=== PATIENT | female | born 1955 | race Caucasian/White ===

== ENCOUNTER 2017-10-13 08:18 | Inpatient (IN) | payer OTHER ==
[2017-10-13] VITALS (8 sets, daily range): BP systolic 164–219; BP diastolic 80–91; PULSE 73–102; RESP 14–21; TEMP 97.9–98.2; O2SAT 96–100
[~2017-10-13] VITALS: Ht 167.6 cm; Wt 118.9 kg
[~2017-10-13 08:18] MED LIST: CALC600T34 PO; COQ10 PO; ENAL5TAB98 PO; GLYB1TAB50 PO; PIOG15 PO; TAB-TAB PO
[2017-10-13] MEDS ORDERED: SODIUM CHLORIDE 0.9% FLUSH 10 ML FLUSH IVF PRN (09:15)
--- NOTE | 2017-10-13 09:16 | PD ---
HPI Chief Complaint: Neuro Symptoms/ Deficits Time Seen by Provider: 09:00 Travel History International Travel<30 days: No Contact w/Intl Traveler<30days: No Traveled to known affect area: No History of Present Illness HPI The patient is a 62-year-old female who presents to the emergency department for neuro symptoms. The patient states she has had some intermittent dizziness and headache since August. The patient states she went to bed last night feeling well, when she awakened this morning she was unable to speak and had weakness and numbness of the right side of the body. The patient states she had expressive aphasia for approximately 10 minutes. She also noted that she cannot move the right side of her body and had numbness/tingling of the right side of the body. Her symptoms resolved after 10 minutes. She currently denies any symptoms except for mild dizziness which she states has been intermittent since August. The patient's primary physician is Dr. Bravo. The patient denies any previous history of CVA or TIA. The patient does have a history of hypertension, hyperlipidemia, and diabetes. Symptoms were moderate, resolved after 10 minutes. PFSH Past Medical History Cancer: No Diabetes: Yes Glaucoma: No Hepatitis: No Hiatal Hernia: No Hypertension: Yes Thyroid Disease: No Past Surgical History Gynecologic Surgery: Yes (HYSTERECTOMY, D&C X 2) Oral Surgery: Yes (TONSILLECTOMY) Pacemaker: No Social History Alcohol Use: Yes (SOCIAL) Tobacco Use: No Allergies-Medications (Allergen,Severity, Reaction): Coded Allergies: Sulfa (Sulfonamide Antibiotics) (Unverified Allergy, Severe, mouth peels, 10/13/17) Uncoded Allergies: PINE TREES (Allergy, Severe, STOPS BREATHING, 04/18/09) ARTIFICIAL SWEETNERS (Adverse Reaction, Severe, CAUSE NAUSEA, EXCEPT FOR SACATRIN, 04/18/09) Reported Meds & Prescriptions Reported Meds & Active Scripts Active Reported Aspirin 81 Mg Chew 81 Mg CHEW DAILY Tanzeum 4-Pack Inj (Albiglutide) 50 Mg Pfpen 50 Mg SQ Q7D Amaryl (Glimepiride) 2 Mg Tab 2 Mg PO BIDAC [Coq10] 400 Mg PO DAILY Calcium 600 Mg Tab 600 Mg PO BID Multivitamin (Multivitamins) 1 Tab Tab 1 Tab PO DAILY Vasotec (Enalapril Maleate) 5 Mg Tab 5 Mg PO BID Diabeta (Glyburide) 2.5 Mg Tab 0.5 Tab PO BID Actos 15 mg (Pioglitazone HCl) 15 Mg Tab 20 Mg PO DAILY Review of Systems Except as stated in HPI: all other systems reviewed are Neg Eyes: No: Visual changes HENT: Positive: Headaches, No: Lightheadedness Cardiovascular: No: Chest Pain or Discomfort Respiratory: No: Shortness of Breath Gastrointestinal: No: Nausea, Vomiting, Abdominal Pain Musculoskeletal: Positive: Weakness Neurologic: Positive: Slurred Speech (expressive aphasia per patient), Paresthesia, Sensory Disturbance Physical Exam Narrative GENERAL: Awake, alert, pleasant 62-year-old female who appears her stated age and is in no acute respiratory distress. SKIN: Focused skin assessment warm/dry. HEAD: Atraumatic. Normocephalic. EYES: Pupils equal and round. 4 mm bilateral and reactive. EOMs are intact. Visual mcnair appear symmetric. ENT: No nasal bleeding or discharge. Mucous membranes pink and moist. NECK: Trachea midline. No JVD. CARDIOVASCULAR: Regular rate and rhythm. No murmur appreciated. RESPIRATORY: No accessory muscle use. Clear to auscultation. Breath sounds equal bilaterally. GASTROINTESTINAL: Abdomen soft, non-tender, nondistended. MUSCULOSKELETAL: No obvious deformities. No clubbing. No cyanosis. No edema. NEUROLOGICAL: Awake and alert. No obvious cranial nerve deficits. Motor grossly within normal limits. Normal speech. Nonfocal. Oriented 4. Follows commands without difficulty. No drift of the upper or lower extremities. Finger to nose is normal. Kyja-sd-dluh is normal. Sensation was symmetric on the face, arms, and legs bilaterally. Smile is symmetric. NIHSS 0. PSYCHIATRIC: Appropriate mood and affect; insight and judgment normal. Data Data Last Documented VS Vital Signs Date Time Temp Pulse Resp B/P (MAP) Pulse Ox O2 Delivery O2 Flow Rate FiO2 10/13/17 09:28 (129) Room Air 10/13/17 09:06 81 18 97 10/13/17 08:31 97.9 Orders Orders Complete Blood Count With Diff (10/13/17 08:46) Basic Metabolic Panel (Bmp) (10/13/17 08:46) Prothrombin Time / Inr (Pt) (10/13/17 08:46) Electrocardiogram (10/13/17 09:11) Creatine Kinase (Cpk) (10/13/17 09:11) Troponin I (10/13/17 09:11) Ct Brain W/O Iv Contrast(Rout) (10/13/17 09:11) Chest, Single Ap (10/13/17 09:11) Ecg Monitoring (10/13/17 09:11) Iv Access Insert/Monitor (10/13/17 09:11) Oximetry (10/13/17 09:11) Sodium Chloride 0.9% Flush (Ns Flush) (10/13/17 09:15) Admit Order (Ed Use Only) (10/13/17 10:08) Labs Laboratory Tests Test 10/13/17 08:50 White Blood Count 7.8 TH/MM3 Red Blood Count 5.19 MIL/MM3 Hemoglobin 14.0 GM/DL Hematocrit 42.0 % Mean Corpuscular Volume 80.9 FL Mean Corpuscular Hemoglobin 27.0 PG Mean Corpuscular Hemoglobin Concent 33.3 % Red Cell Distribution Width 14.6 % Platelet Count 236 TH/MM3 Mean Platelet Volume 9.1 FL Neutrophils (%) (Auto) 70.1 % Lymphocytes (%) (Auto) 23.4 % Monocytes (%) (Auto) 4.9 % Eosinophils (%) (Auto) 1.1 % Basophils (%) (Auto) 0.5 % Neutrophils # (Auto) 5.5 TH/MM3 Lymphocytes # (Auto) 1.8 TH/MM3 Monocytes # (Auto) 0.4 TH/MM3 Eosinophils # (Auto) 0.1 TH/MM3 Basophils # (Auto) 0.0 TH/MM3 CBC Comment DIFF FINAL Differential Comment Prothrombin Time 10.0 SEC Prothromb Time International Ratio 1.0 RATIO Blood Urea Nitrogen 8 MG/DL Creatinine 0.72 MG/DL Random Glucose 184 MG/DL Calcium Level 8.6 MG/DL Sodium Level 138 MEQ/L Potassium Level 3.8 MEQ/L Chloride Level 104 MEQ/L Carbon Dioxide Level 27.0 MEQ/L Anion Gap 7 MEQ/L Estimat Glomerular Filtration Rate 82 ML/MIN Total Creatine Kinase 43 U/L Troponin I LESS THAN 0.02 NG/ML MDM Medical Decision Making Medical Screen Exam Complete: Yes Emergency Medical Condition: Yes Medical Record Reviewed: Yes Interpretation(s) EKG reveals normal sinus rhythm with a rate of 73. No ischemic changes or ectopy noted. Last Impressions Head CT 10/13/17 09 Signed Impressions: Service Date/Time: Friday, October 13, 2017 09:41 - CONCLUSION: 1. Old area of cortical infarct measuring approximately 1 cm involving the right cerebellar hemisphere. 2. No acute intracranial abnormality identified. Jose Hancock MD Chest X-Ray 10/13/17 0911 Signed Impressions: Service Date/Time: Friday, October 13, 2017 09:28 - CONCLUSION: 1. No acute cardiopulmonary findings. Jose Hancock MD Laboratory Tests Test 10/13/17 08:50 White Blood Count 7.8 TH/MM3 Red Blood Count 5.19 MIL/MM3 Hemoglobin 14.0 GM/DL Hematocrit 42.0 % Mean Corpuscular Volume 80.9 FL Mean Corpuscular Hemoglobin 27.0 PG Mean Corpuscular Hemoglobin Concent 33.3 % Red Cell Distribution Width 14.6 % Platelet Count 236 TH/MM3 Mean Platelet Volume 9.1 FL Neutrophils (%) (Auto) 70.1 % Lymphocytes (%) (Auto) 23.4 % Monocytes (%) (Auto) 4.9 % Eosinophils (%) (Auto) 1.1 % Basophils (%) (Auto) 0.5 % Neutrophils # (Auto) 5.5 TH/MM3 Lymphocytes # (Auto) 1.8 TH/MM3 Monocytes # (Auto) 0.4 TH/MM3 Eosinophils # (Auto) 0.1 TH/MM3 Basophils # (Auto) 0.0 TH/MM3 CBC Comment DIFF FINAL Differential Comment Prothrombin Time 10.0 SEC Prothromb Time International Ratio 1.0 RATIO Blood Urea Nitrogen 8 MG/DL Creatinine 0.72 MG/DL Random Glucose 184 MG/DL Calcium Level 8.6 MG/DL Sodium Level 138 MEQ/L Potassium Level 3.8 MEQ/L Chloride Level 104 MEQ/L Carbon Dioxide Level 27.0 MEQ/L Anion Gap 7 MEQ/L Estimat Glomerular Filtration Rate 82 ML/MIN Differential Diagnosis Differential Tran diagnosis includes TIA, CVA, transient neurologic deficit, hemiplegic migraine, night paralysis, intracranial hemorrhage. Narrative Course IV was established, labs are drawn and sent, and the patient was placed on cardiac telemetry monitoring and continuous pulse oximetry monitoring. EKG was ordered and interpreted. Stat CT of the brain was obtained. Upon arrival the patient's stroke scale was 0, however, it appears the patient had a TIA affect and possibly the left MCA with her aphasia and right sided weakness and numbness. Patient does have multiple risk factors including diabetes, hypertension, and hyperlipidemia. 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 I discussed the patient Dr. Suarez who agrees with admission. The patient received aspirin in the emergency department. Physician Communication Physician Communication I discussed the patient with Dr. Suarez who agrees with admission. Diagnosis Primary Impression: TIA (transient ischemic attack) Qualified Codes: G45.9 - Transient cerebral ischemic attack, unspecified Additional Impression: Cerebellar infarct Admitting Information Admitting Physician Requests: Admit Condition: Stable Tristan Copeland MD Oct 13, 2017 09:16
[2017-10-13 09:20] LABS: AUTOMATED NEUTROPHIL # 5.5 TH/MM3 (1.8-7.7); BASOPHIL % 0.5 % (0.0-2.0); EOSINOPHIL # 0.1 TH/MM3 (0-0.4); EOSINOPHIL % 1.1 % (0.0-4.0); LYMPH % 23.4 % (9.0-44.0); LYMPHOCYTE # 1.8 TH/MM3 (1.0-4.8); MEAN CELL VOLUME 80.9 FL (80.0-100.0); MEAN CORPUSCULAR HGB CONC 33.3 % (32.0-36.0); MEAN PLATELET VOLUME 9.1 FL (7.0-11.0); MONO % 4.9 % (0.0-8.0); MONOCYTE # 0.4 TH/MM3 (0-0.9); NEUT % 70.1 % (16.0-70.0); PLATELET COUNT 236 TH/MM3 (150-450); RED BLOOD COUNT 5.19 MIL/MM3 (4.00-5.30); RED CELL DISTRIBUTION WIDTH 14.6 % (11.6-17.2); WHITE BLOOD COUNT 7.8 TH/MM3 (4.0-11.0)
[2017-10-13 09:34] LABS: CALCIUM 8.6 MG/DL (8.5-10.1); CREATININE 0.72 MG/DL (0.50-1.00)
--- NOTE | 2017-10-13 09:38 | RADRPT ---
EXAM DATE/TIME: 10/13/2017 09:28 [facility] COMPARISON: No previous studies available for comparison. INDICATIONS : Patient had right sided weakness with inability to speak this morning. MEDICAL HISTORY : None. SURGICAL HISTORY : None. ENCOUNTER: Initial ACUITY: 1 day PAIN SCORE: 0/10 LOCATION: upper chest FINDINGS: A single view of the chest demonstrates the lungs to be symmetrically aerated without evidence of mas s, infiltrate or effusion. The cardiomediastinal contours are unremarkable. Osseous structures are intact. CONCLUSION: 1. No acute cardiopulmonary findings. Jose Hancock MD on October 13, 2017 at 9:34 Board Certified Radiologist. This report was verified electronically.
--- NOTE | 2017-10-13 09:53 | RADRPT ---
EXAM DATE/TIME: 10/13/2017 09:41 [facility] COMPARISON: No previous studies available for comparison. INDICATIONS : Right sided weakness, dizziness. RADIATION DOSE: 36.72 CTDIvol (mGy) MEDICAL HISTORY : Hypertension. Cerebrovascular disease. diabetes SURGICAL HISTORY : Tonsillectomy. ENCOUNTER: Initial ACUITY: 1 day PAIN SCALE: 5/10 LOCATION: cranial TECHNIQUE: Multiple contiguous axial images were obtained of the head. Using automated exposure control and adj ustment of the mA and/or kV according to patient size, radiation dose was kept as low as reasonably a chievable to obtain optimal diagnostic quality images. DICOM format image data is available electro nically for review and comparison. FINDINGS: The ventricular system is normal in size and configuration. There is no acute intracranial hemorrhage . No abnormal intra-or extra-axial fluid collections are identified. Examination of the posterior fossa demonstrates a 1.1 x 1.0 cm area of encephalomalacia in the right cerebellar hemisphere. The posterior fossa is otherwise unremarkable in appearance. The osseous structures of skull are intact. The visualized portion of the orbit are intact. The sinus es are clear. CONCLUSION: 1. Old area of cortical infarct measuring approximately 1 cm involving the right cerebellar hemispher e. 2. No acute intracranial abnormality identified. Jose Hancock MD on October 13, 2017 at 9:47 Board Certified Radiologist. This report was verified electronically.
[2017-10-13] MEDS ORDERED: SODIUM CHLORIDE 0.9% FLUSH 10 ML FLUSH IV FLUSH PRN ×2 (10:15→21:15)
[2017-10-13] MEDS ORDERED: ACETAMINOPHEN 325 MG TAB PO PRN (10:15)
[2017-10-13] MEDS ORDERED: NALOXONE HCL 0.4 MG/ML AMP IV PUSH PRN (10:15)
[2017-10-13] MEDS ORDERED: MAGNESIUM HYDROXIDE SUSP 30 ML CUP PO PRN (10:15)
[2017-10-13] MEDS ORDERED: ONDANSETRON HCL 4 MG/2 ML VIAL IVP PRN (10:15)
[2017-10-13] MEDS ORDERED: AMAR2TAB PO (10:19)
[2017-10-13] MEDS ORDERED: ASPI-516 CHEW (10:19)
[2017-10-13] MEDS ORDERED: ALBI1INJ2 SQ (10:19)
[2017-10-13 10:24] LABS: TROPONIN I LESS THAN 0.02 NG/ML (0.02-0.05)
[2017-10-13] MEDS ORDERED: GLUCAGON 1 MG/ML VIAL OTHER PRN ×2 (10:45→21:15)
[2017-10-13] MEDS ORDERED: DEXTROSE 50% IN WATER 50 ML VIAL(D50) IV PUSH PRN ×2 (10:45→21:15)
[2017-10-13] MEDS: ENALAPRIL MALEATE 10 MG TAB PO SCH ×2 (11:00→21:46)
[2017-10-13] MEDS ORDERED: ASPIRIN 325 MG TAB PO SCH (11:00)
--- NOTE | 2017-10-13 11:11 | HHI.HP ---
HPI Service [facility] Hospitalists Primary Care Physician Agus Bravo MD Admission Diagnosis TIA, cerebellar infarct Chief Complaint: Dizziness, transient neurological deficits Travel History International Travel<30 Days: No Contact w/Intl Traveler <30 Da: No Traveled to Known Affected Are: No History of Present Illness Mrs. Porter is a 62 y/o female with diabetes mellitus, type 2, HTN, and hyperlipidemia who presented to the ED at [facility] on 10/13/17 with reported intermittent dizziness and headache since August 2017. The patient states she went to bed last night feeling well but when she awakened this morning she was unable to speak and had weakness and numbness of the right side of the body. The patient reports that she had expressive aphasia and the right sided weakness and paresthesia for approximately 10 minutes then her symptoms resolved. She denies any previous known hx of CVA or TIA. She denies any previous similar symptoms. She had a Head CT in the ED which noted an old area of cortical infarct measuring approximately 1 cm involving the right cerebellar hemisphere but no acute intracranial abnormality identified. Pts BP was significantly elevated in the ED at 205/91 and has remained elevated. Pt has been able to ambulate in the ED. She still feels slightly dizzy. Review of Systems Constitutional: COMPLAINS OF: Diaphoretic episodes, Dizziness, DENIES: Fever, Chills Eyes: DENIES: Vision loss Ears, nose, mouth, throat: DENIES: Hearing loss Respiratory: DENIES: Cough, Shortness of breath Cardiovascular: DENIES: Chest pain, Palpitations, Lower Extremity Edema Gastrointestinal: DENIES: Abdominal pain, Nausea, Vomiting Genitourinary: DENIES: Urinary frequency, Urinary incontinence, Dysuria Musculoskeletal: DENIES: Back pain, Neck pain Neurologic: COMPLAINS OF: Localized weakness, Paresthesias, Speech Problems, DENIES: Headache Psychiatric: DENIES: Confusion Past Family Social History Past Medical History Diabetes mellitus, type 2, Hgb A1C 7.1% in 07/2017 HTN Hyperlipidemia, pt reportedly unable to tolerate statins Nontoxic multinodular goiter, FNA in the past was negative, follows with Niranjan. Micelli Fatty liver Vitamin D Deficiency Past Surgical History Hysterectomy, partial D&C x 2 Breast nodule removal Knee arthroscopy Tonsillectomy Wrist surgery Skin cancers removed from face Reported Medications -Aspirin 81 Mg Chew DAILY -Tanzeum 4-Pack Inj 50 Mg Pfpen SQ Q7D -Amaryl 2 Mg PO BIDAC --Vasotec 20 Mg PO BID ?Diabeta (Glyburide) 2.5 Mg Tab 0.5 Tab PO BID ?Actos 15 mg (Pioglitazone HCl) 15 Mg Tab 20 Mg PO DAILY [Coq10] 400 Mg PO DAILY Calcium 600 Mg Tab 600 Mg PO BID Multivitamin (Multivitamins) 1 Tab Tab 1 Tab PO DAILY Allergies: Coded Allergies: Sulfa (Sulfonamide Antibiotics) (Unverified Allergy, Severe, mouth peels, 10/13/17) Uncoded Allergies: PINE TREES (Allergy, Severe, STOPS BREATHING, 04/18/09) ARTIFICIAL SWEETNERS (Adverse Reaction, Severe, CAUSE NAUSEA, EXCEPT FOR SACATRIN, 04/18/09) Family History Noncontributory Social History Remote hx of tobacco use, quit 40 years ago Social alcohol use Denies any illicit drug use Pt was born in [place] but has lived in [place] since age 11 Pt is and lived with her spouse Pt works as a public works supervisor at [employer] Physical Exam Vital Signs Vital Signs Date Time Temp Pulse Resp B/P (MAP) Pulse Ox O2 Delivery O2 Flow Rate FiO2 10/13/17 10:17 73 14 203/83 (123) 97 10/13/17 09:28 (129) Room Air 10/13/17 09:06 81 18 97 Room Air 10/13/17 08:31 97.9 90 18 205/91 (129) 96 10/13/17 08:25 98.2 102 17 164/80 (108) 100 10/13/17 08:20 97.9 90 18 205/91 (129) 96 Physical Exam GENERAL: This is a well-nourished, well-developed patient, in no apparent distress. HEENT: Atraumatic. Normocephalic. No temporal or scalp tenderness. No scleral icterus. Airway patent. NECK: Trachea midline, supple, nontender. CARDIO: Regular . RESP: CTA bilaterally. No wheezes, rales, or rhonchi. ABD: +BS, soft, non-tender, nondistended. EXT: Extremities without clubbing, cyanosis, or edema. NEURO: Awake and alert. Cranial nerves II through XII intact. Motor and sensory grossly within normal limits. Five out of 5 muscle strength in all muscle groups. Normal speech. Laboratory Laboratory Tests Test 1/15/18 08:50 White Blood Count 7.8 Red Blood Count 5.19 Hemoglobin 14.0 Hematocrit 42.0 Mean Corpuscular Volume 80.9 Mean Corpuscular Hemoglobin 27.0 Mean Corpuscular Hemoglobin Concent 33.3 Red Cell Distribution Width 14.6 Platelet Count 236 Mean Platelet Volume 9.1 Neutrophils (%) (Auto) 70.1 Lymphocytes (%) (Auto) 23.4 Monocytes (%) (Auto) 4.9 Eosinophils (%) (Auto) 1.1 Basophils (%) (Auto) 0.5 Neutrophils # (Auto) 5.5 Lymphocytes # (Auto) 1.8 Monocytes # (Auto) 0.4 Eosinophils # (Auto) 0.1 Basophils # (Auto) 0.0 CBC Comment DIFF FINAL Differential Comment Prothrombin Time 10.0 Prothromb Time International Ratio 1.0 Blood Urea Nitrogen 8 Creatinine 0.72 Random Glucose 184 Calcium Level 8.6 Sodium Level 138 Potassium Level 3.8 Chloride Level 104 Carbon Dioxide Level 27.0 Anion Gap 7 Estimat Glomerular Filtration Rate 82 Total Creatine Kinase 43 Troponin I LESS THAN 0.02 Result Diagram: 10/13/17 0850 10/13/17 0850 Imaging Last Impressions Head CT 10/13/17 0911 Signed Impressions: Service Date/Time: Friday, October 13, 2017 09:41 - CONCLUSION: 1. Old area of cortical infarct measuring approximately 1 cm involving the right cerebellar hemisphere. 2. No acute intracranial abnormality identified. Jose Hancock MD Chest X-Ray 10/13/17910 Signed Impressions: Service Date/Time: Friday, October 13, 2017 09:28 - CONCLUSION: 1. No acute cardiopulmonary findings. Jose Hancock MD Caprini VTE Risk Assessment Caprini VTE Risk Assessment: Mod/High Risk (score >= 2) Caprini Risk Assessment Model Point Value = 1 Point Value = 2 Point Value = 3 Point Value = 5 Age 41-60 Minor surgery BMI > 25 kg/m2 Swollen legs Varicose veins or History of unexplained or recurrent spontaneous Oral contraceptives or hormone replacement Sepsis (< 1 month) Serious lung disease, including pneumonia (< 1 month) Abnormal pulmonary function Acute myocardial infarction Congestive heart failure (< 1 month) History of inflammatory bowel disease Medical patient at bed rest Age 61-74 Arthroscopic surgery Major open surgery (> 45 min) Laparoscopic surgery (> 45 min) Malignancy Confined to bed (> 72 hours) Immobilizing plaster cast Central venous access Age >= 75 History of VTE Family history of VTE Factor V Leiden Prothrombin [id number] Lupus anticoagulant Anticardiolipin antibodies Elevated serum homocysteine Heparin-induced thrombocytopenia Other congenital or acquired thrombophilia Stroke (< 1 month) Elective arthroplasty Hip, pelvis, or leg fracture Acute spinal cord injury (< 1 month) Prophylaxis Regimen Total Risk Factor Score Risk Level Prophylaxis Regimen 0-1 Low Early ambulation 2 Moderate Order ONE of the following: *Sequential Compression Device (SCD) *Heparin 5000 units SQ BID 3-4 Higher Order ONE of the following medications: *Heparin 5000 units SQ TID *Enoxaparin/Lovenox 40 mg SQ daily (WT < 150 kg, CrCl > 30 mL/min) *Enoxaparin/Lovenox 30 mg SQ daily (WT < 150 kg, CrCl > 10-29 mL/min) *Enoxaparin/Lovenox 30 mg SQ BID (WT < 150 kg, CrCl > 30 mL/min) AND/OR *Sequential Compression Device (SCD) 5 or more Highest Order ONE of the following medications: *Heparin 5000 units SQ TID (Preferred with Epidurals) *Enoxaparin/Lovenox 40 mg SQ daily (WT < 150 kg, CrCl > 30 mL/min) *Enoxaparin/Lovenox 30 mg SQ daily (WT < 150 kg, CrCl > 10-29 mL/min) *Enoxaparin/Lovenox 30 mg SQ BID (WT < 150 kg, CrCl > 30 mL/min) AND *Sequential Compression Device (SCD) Assessment and Plan Problem List: (1) TIA (transient ischemic attack) ICD Codes: G45.9 - Transient cerebral ischemic attack, unspecified Status: Acute Plan: - Pt is a 62 y/o female with diabetes mellitus, type 2, HTN, and hyperlipidemia who presented to the ED at [facility] on 10/13/17 with reported intermittent dizziness and headache since August 2017. The patient states she went to bed last night feeling well but when she awakened this morning she was unable to speak and had weakness and numbness of the right side of the body. - The patient reports that she had expressive aphasia and the right sided weakness and paresthesia for approximately 10 minutes then her symptoms resolved. - Head CT in the ED which noted an old area of cortical infarct measuring approximately 1 cm involving the right cerebellar hemisphere but no acute intracranial abnormality identified. - Pts BP was significantly elevated in the ED at 205/91 and has remained elevated. - Neurology is consulted - MRI brain/MRA brain to assess for possible CVA vs. TIA - Carotid US - Telemetry - 2D echo - Check Hgb A1c and lipid profile (pt has been intolerant to statin per outpt records) - ASA 325mg - Enalapril 20mg po BID resumed at admission but may need to hold for permissive HTN if imaging reveals acute CVA - Vasotec PRN for systolic BP>220 - PT evaluation in AM (2) Cerebellar infarct ICD Codes: I63.9 - Cerebral infarction, unspecified Status: Acute Plan: - Pt with evidence of previous cerebellar CVA - This could be the cause of her previous dizziness since 08/2017 - See above. (3) HTN (hypertension) ICD Codes: I10 - Essential (primary) hypertension Status: Chronic Plan: - BP elevation at admission may be related to acute ischemic event - MRI is pending to assess for acute CVA - Pt is on Enalapril 20mg po BID at home, this has been resumed but may need to be held for permissive HTN is acute CVA found on MRI - Vasotec PRN for systolic BP over 220 - Monitor closely (4) Hyperlipidemia ICD Codes: E78.5 - Hyperlipidemia, unspecified Plan: - Pt reportedly intolerant of statins in the past - Check lipid panel (5) Diabetes mellitus ICD Codes: E11.9 - Type 2 diabetes mellitus without complications Plan: - NovoLog SSI - Accu checks Assessment and Plan Patient examined. Assessment and plan formulated with María Geronimo PA-C. I agree with the above. MRI brain (10/13) confirms CVA Case d/w Neurology, Dr. Aguila. He will consult. Continue permissive HTN and IVFs. Fasting lipid panel pending. Per pt she has NOT been able to tolerate statin therapy in the past and has tried multiple statins Await repeat statins, consider starting statin at low dose with slow upwards increase. Physician Certification 2 Midnight Certification Type: Admission for Inpatient Services Order for Inpatient Services The services are ordered in accordance with Medicare regulations or non- Medicare payer requirements, as applicable. In the case of services not specified as inpatient-only, they are appropriately provided as inpatient services in accordance with the 2-midnight benchmark. Estimated LOS (days): 3 3 days is the estimated time the patient will need to remain in the hospital, assuming treatment plan goals are met and no additional complications. Post-Hospital Plan: Not yet determined Problem Qualifiers (1) TIA (transient ischemic attack): Qualified Codes: G45.9 - Transient cerebral ischemic attack, unspecified (2) Diabetes mellitus: María Geronimo Oct 13, 2017 11:11 Jamey Suarez DO Oct 13, 2017 22:51
[2017-10-13] MEDS: INSULIN ASPART SUPPLEMENTAL SCALE SQ SCH ×3 (11:18→21:00)
--- NOTE | 2017-10-13 12:04 | RADRPT ---
EXAM DATE/TIME: 10/13/2017 10:21 [facility] COMPARISON: No previous studies available for comparison. INDICATIONS : Cerebrovascular accident. Right-sided weakness and dizziness. Abnormal CT demonstrating old cortical infarction in the right cerebellar hemisphere. MEDICAL HISTORY : Hypercholesterolemia. Hypertension. Diabetes. SURGICAL HISTORY : Tonsillectomy. Hysterectomy. Dilation and curettage. ENCOUNTER: Initial ACUITY: 1 day PAIN SCORE: 0/10 LOCATION: Bilateral neck PEAK SYSTOLIC VELOCITIES (cm/sec): ICA/CCA RATIO: Right: 1.8 Left: 1.2 ICA: Right: 165 Left: 92 CCA: Right: 90 Left: 75 ECA: Right: 138 Left: 141 VERTEBRAL: Right: 42 antegrade Left: 36 antegrade Elevated flow velocities and ICA/CCA ratios have been found to correlate with increased degrees of vessel stenosis, calculated as percentage of diameter relative to a normal segment of distal ICA/CCA FINDINGS: RIGHT CAROTID: No significant stenosis is visualized. Minimal plaque is present. The waveforms are within normal li mits. LEFT CAROTID: No significant stenosis is visualized. Minimal plaque is present. The waveforms are within normal li mits. VERTEBRAL ARTERIES: Antegrade flow is seen in both vertebral arteries. MISCELLANEOUS: None. CONCLUSION: Minimal plaquing with less than 50% diameter stenosis in the right internal carotid a dov. Bill Shepard MD on October 13, 2017 at 11:59 Board Certified Radiologist. This report was verified electronically.
[2017-10-13 13:05] LABS: HEMOGLOBIN A1C 7.4 % (4.3-6.0)
--- NOTE | 2017-10-13 14:55 | RADRPT ---
EXAM DATE/TIME: 10/13/2017 12:54 [facility] COMPARISON: No previous studies available for comparison. INDICATIONS : Right sided weakness, dizziness. MEDICAL HISTORY : Hypertension. Diabetes mellitus type 2. carcinoma, skin SURGICAL HISTORY : Hysterectomy. knee, wrist ENCOUNTER: Initial ACUITY: 1 day PAIN SCORE: 0/10 LOCATION: cranial TECHNIQUE: Multiplanar, multisequence MRI of the brain was performed without contrast. FINDINGS: Following specific findings: Diffusion restricted images demonstrate a punctate area of abnormal diffusion signal immediately post erior to the posterior horn of the left lateral ventricle. In addition, there is abnormal signal owen uring 1.5 x 1.3 cm in the right cerebellar hemisphere. Both of these areas would be consistent with s mall areas of acute cortical infarction. There is no evidence of hemorrhage within these. MRI source data: The ventricles are normal in size and configuration. There are some scattered areas of increased T2 s ignal within the white matter most consistent with mild microvascular ischemic demyelinative change. No extra-axial fluid collections are seen. The visualized portion of sinus and orbit are intact. CONCLUSION: 1. 1.5 x 1.3 cm area of acute cortical infarct in the right cerebellar hemisphere. 2. Punctate area of acute cortical infarct in the left a occipital cortex immediately posterior to th e posterior horn of the left lateral ventricle. Jose Hancock MD on October 13, 2017 at 14:49 Board Certified Radiologist. This report was verified electronically.
--- NOTE | 2017-10-13 14:56 | RADRPT ---
EXAM DATE/TIME: 10/13/2017 12:54 [facility] COMPARISON: No previous studies available for comparison. INDICATIONS : Right sided weakness, dizziness. MEDICAL HISTORY : Diabetes mellitus type 2. Hypertension. carcinoma, skin SURGICAL HISTORY : Hysterectomy. knee, wrist ENCOUNTER: Initial ACUITY: 1 day PAIN SCORE: 0/10 LOCATION: cranial Please note a normal MRA of the brain does not entirely exclude the possibility of a small aneurysm, nor the possibility of distal intracranial vessel disease. TECHNIQUE: 3D time of flight MRA was performed. Source images, multiplanar STS MIP, and 3D volume MIP reconstru ctions were reviewed. FINDINGS: Both distal internal carotid arteries are widely patent. The appearance of the anterior and middle ce rebral circulation is within normal limits. The left vertebral artery is small in size and appears to terminate in a PICA. The right vertebral is patent however, there appears to be fairly high grade stenosis at its junction with the basilar. The basilar is patent throughout its course. The right posterior cerebral feeds via the posterior commun icating. The left posterior cerebral feeds via the basilar. CONCLUSION: 1. Abnormal appearance of the vertebrobasilar circulation as above. 2. The anterior and middle cerebral circulation is widely patent Jose Hancock MD on October 13, 2017 at 14:52 Board Certified Radiologist. This report was verified electronically.
[2017-10-13] MEDS: 1/2 NS + KCL 20 MEQ INJ 1,000 ML IV SCH (17:06)
[2017-10-13] MEDS: ENALAPRILAT 1.25 MG/ML VIAL IV PUSH PRN (18:25)
[2017-10-13] MEDS ORDERED: SODIUM CHLORIDE 0.9% FLUSH 10 ML FLUSH IV FLUSH SCH (21:00)
[2017-10-13] MEDS: SODIUM CHLORIDE 0.9% FLUSH 10 ML FLUSH IV FLUSH SCH (21:00)
[2017-10-13] MEDS ORDERED: IOHEXOL 350 MG/ML 10 ML VIAL (for RAD DIAG) IVCONTRAST ONE (21:47)
--- NOTE | 2017-10-13 22:17 | RADRPT ---
EXAM DATE/TIME: 10/13/2017 21:21 [facility] COMPARISON: CT BRAIN W/O CONTRAST, October 13, 2017, 9:41. INDICATIONS : Right side weakness. IV CONTRAST: 70 cc Omnipaque 350 (iohexol) IV ; Cumulative dose for multiple exams. RADIATION DOSE: 27.03 CTDIvol (mGy) ; Combined studies MEDICAL HISTORY : Hypertension. SURGICAL HISTORY : Hysterectomy. ENCOUNTER: Initial ACUITY: 1 day PAIN SCALE: 0/10 LOCATION: cranial TECHNIQUE: Volumetric scanning was performed using a multi-row detector CT scanner. The data was post processed with a variety of visualization algorithms including full volume maximum intensity projection, multi -planar sliding thin slab reformation, curved planar reformation, and surface rendering techniques. Using automated exposure control and adjustment of the mA and/or kV according to patient size, radiat ion dose was kept as low as reasonably achievable to obtain optimal diagnostic quality images. DICO M format image data is available electronically for review and comparison. FINDINGS: There is excellent visualization of the major intracranial arteries out to the second-order branch ve ssels. There is variant anatomy with persistent circulation on the right. The main supply to t he basilar artery is via the right vertebral artery. The left vertebral artery terminates largely in a PICA distribution. There is a focal high grade stenosis involving the right vertebral artery at the level of the foramen magnum. There is no evidence for aneurysm, vessel truncation or other stenosis, and no evidence for vascular malformation. CONCLUSION: 1. Focal high grade stenosis involving the right vertebral artery at the level of the foramen magnum. The right vertebral artery is the main supply to the basilar system. The left vertebral artery termi nates in a PICA distribution. Kael Pedrzoa Jr., MD on October 13, 2017 at 22:09 Board Certified Radiologist. This report was verified electronically.
--- NOTE | 2017-10-13 22:19 | RADRPT ---
EXAM DATE/TIME: 10/13/2017 21:21 [facility] COMPARISON: No previous studies available for comparison. INDICATIONS : Right side weakness. IV CONTRAST: 70 cc Omnipaque 350 (iohexol) IV ; Cumulative dose for multiple exams. RADIATION DOSE: 27.03 CTDIvol (mGy) ; Combined studies MEDICAL HISTORY : Hypertension. SURGICAL HISTORY : Hysterectomy. ENCOUNTER: Initial ACUITY: 1 day PAIN SCALE: 0/10 LOCATION: neck Elevated flow velocities and ICA/CCA ratios have been found to correlate with increased degrees of vessel stenosis, calculated as percentage of diameter relative to a normal segment of distal ICA/CCA. TECHNIQUE: Volumetric scanning was performed using a multirow detector CT scanner. The data was post processed with a variety of visualization algorithms including full-volume maximum intensity projection, multip lanar sliding thin-slab reformation, curved-planar reformation, and surface-rendering techniques. Us ing automated exposure control and adjustment of the mA and/or kV according to patient size, radiatio n dose was kept as low as reasonably achievable to obtain optimal diagnostic quality images. DICOM f ormat image data is available electronically for review and comparison. FINDINGS: AORTIC ARCH: There is a three-vessel origin of the great vessels from the aorta. No evidence of ostial narrowing. RIGHT CAROTID: The common carotid artery is intact. The carotid bulb has a normal configuration without ulceration o r narrowing. The internal carotid artery lumen is smooth without stenosis. The external carotid marilyn ry is intact. LEFT CAROTID: The common carotid artery is intact. The carotid bulb has a normal configuration without ulceration or narrowing. The internal carotid artery lumen is smooth without stenosis. The external carotid ar [place] is intact. VERTEBRALS: The vertebral arteries have a symmetric diameter. No stenotic lesions are seen. CONCLUSION: 1. Patent carotid arteries and proximal vertebral arteries. 2. 3.5 cm right thyroid nodule. Kael Pedroza Jr., MD on October 13, 2017 at 22:14 Board Certified Radiologist. This report was verified electronically.
[2017-10-14] VITALS (9 sets, daily range): BP systolic 144–214; BP diastolic 68–96; PULSE 74–97; RESP 18–19; TEMP 97.4–98.2; O2SAT 95–97
[2017-10-14] MEDS: 1/2 NS + KCL 20 MEQ INJ 1,000 ML IV SCH (03:10)
[2017-10-14] MEDS: SODIUM CHLOR 0.9% 1000 ML INJ 1,000 ML IV SCH ×2 (03:54→11:33)
[2017-10-14 04:42] LABS: BASOPHIL # 0.1 TH/MM3 (0-0.2); BASOPHIL % 0.6 % (0.0-2.0); EOSINOPHIL # 0.1 TH/MM3 (0-0.4); EOSINOPHIL % 1.3 % (0.0-4.0); HEMATOCRIT 40.3 % (35.0-46.0); HEMOGLOBIN 13.1 GM/DL (11.6-15.3); LYMPH % 31.2 % (9.0-44.0); LYMPHOCYTE # 2.6 TH/MM3 (1.0-4.8); MEAN CELL VOLUME 81.4 FL (80.0-100.0); MEAN CORPUSCULAR HEMOGLOBIN 26.4 PG (27.0-34.0); MEAN CORPUSCULAR HGB CONC 32.4 % (32.0-36.0); MEAN PLATELET VOLUME 8.6 FL (7.0-11.0); MONO % 7.1 % (0.0-8.0); MONOCYTE # 0.6 TH/MM3 (0-0.9); NEUT % 59.8 % (16.0-70.0); PLATELET COUNT 225 TH/MM3 (150-450); RED BLOOD COUNT 4.95 MIL/MM3 (4.00-5.30); RED CELL DISTRIBUTION WIDTH 14.7 % (11.6-17.2); WHITE BLOOD COUNT 8.4 TH/MM3 (4.0-11.0)
[2017-10-14 05:01] LABS: BICARBONATE 26.2 MEQ/L (21.0-32.0); CALCIUM 8.5 MG/DL (8.5-10.1); CREATININE 0.7 MG/DL (0.50-1.00)
[2017-10-14 05:04] LABS: CHOLESTEROL/ HDL RATIO 5.95 RATIO
[2017-10-14] MEDS: INSULIN ASPART SUPPLEMENTAL SCALE SQ SCH ×4 (08:00→21:00)
[2017-10-14] MEDS: SODIUM CHLORIDE 0.9% FLUSH 10 ML FLUSH IV FLUSH SCH ×2 (09:00→22:29)
[2017-10-14] MEDS ORDERED: ENAL20TA PO (09:36)
[2017-10-14] MEDS ORDERED: IBUP1TAB5 PO (09:38)
[2017-10-14] MEDS: ASPIRIN 325 MG TAB PO SCH (11:00)
[2017-10-14] MEDS: ENALAPRIL MALEATE 10 MG TAB PO SCH ×2 (11:00→21:43)
[2017-10-14] MEDS: GLIMEPIRIDE 1 MG TAB PO SCH ×2 (11:01→15:23)
--- NOTE | 2017-10-14 12:27 | HHI.PR ---
Subjective Remarks No new complaints. Pt is moving all extremities without difficulties or c/o limb weakness. Pt is able to swallow without difficulties. Pt has no difficulties with speech or word recall. Objective Vitals Vital Signs Date Time Temp Pulse Resp B/P (MAP) Pulse Ox O2 Delivery O2 Flow Rate FiO2 10/14/17 12:10 214/86 (128) 10/14/17 11:02 98.0 83 18 206/96 (132) 95 10/14/17 08:57 21 10/14/17 08:10 98.2 84 19 183/84 (117) 95 10/14/17 07:00 86 10/14/17 04:00 74 10/14/17 00:14 76 10/13/17 22:00 97 10/13/17 21:45 98.2 80 17 196/86 (122) 97 10/13/17 18:28 77 21 196/86 (122) 97 10/13/17 18:20 219/83 (128) Result Diagram: 10/14/17 0341 10/14/17 0341 Imaging Last Impressions Head CT 10/13/17 0911 Signed Impressions: Service Date/Time: Friday, October 13, 2017 09:41 - CONCLUSION: 1. Old area of cortical infarct measuring approximately 1 cm involving the right cerebellar hemisphere. 2. No acute intracranial abnormality identified. Jose Hancock MD Chest X-Ray 10/13/17 0911 Signed Impressions: Service Date/Time: Friday, October 13, 2017 09:28 - CONCLUSION: 1. No acute cardiopulmonary findings. Jose Hancock MD Neck CTA 10/13/17 0000 Signed Impressions: Service Date/Time: Friday, October 13, 2017 21:21 - CONCLUSION: 1. Patent carotid arteries and proximal vertebral arteries. 2. 3.5 cm right thyroid nodule. Kael Pedroza Jr., MD Head Magnetic Resonance Angiography 10/13/17 0000 Signed Impressions: Service Date/Time: Friday, October 13, 2017 12:54 - CONCLUSION: 1. Abnormal appearance of the vertebrobasilar circulation as above. 2. The anterior and middle cerebral circulation is widely patent Jose Hancock MD Head CTA 10/13/17 0000 Signed Impressions: Service Date/Time: Friday, October 13, 2017 21:21 - CONCLUSION: 1. Focal high grade stenosis involving the right vertebral artery at the level of the foramen magnum. The right vertebral artery is the main supply to the basilar system. The left vertebral artery terminates in a PICA distribution. Kael Pedroza Jr., MD Carotid Artery Ultrasound 10/13/17 0000 Signed Impressions: Service Date/Time: Friday, October 13, 2017 10:21 - CONCLUSION: Minimal plaquing with less than 50%% diameter stenosis in the right internal carotid artery. Bill Shepard MD Brain MRI 10/13/17 0000 Signed Impressions: Service Date/Time: Friday, October 13, 2017 12:54 - CONCLUSION: 1. 1.5 x 1.3 cm area of acute cortical infarct in the right cerebellar hemisphere. 2. Punctate area of acute cortical infarct in the left a occipital cortex immediately posterior to the posterior horn of the left lateral ventricle. Jose Hancock MD Objective Remarks GENERAL: This is a well-nourished, well-developed patient, in no apparent distress. CARDIOVASCULAR: Regular rate and rhythm without murmurs, gallops, or rubs. RESPIRATORY: Clear to auscultation. Breath sounds equal bilaterally. No wheezes , rales, or rhonchi. GASTROINTESTINAL: Abdomen soft, non-tender, nondistended. Normal active bowel sounds MUSCULOSKELETAL: Extremities without clubbing, cyanosis, or edema. NEURO: Alert & Oriented x4 to person, place, time, situation. Moves all ext x4 A/P Problem List: (1) TIA (transient ischemic attack) ICD Codes: G45.9 - Transient cerebral ischemic attack, unspecified Status: Acute Plan: - comgmt with Neurology, Dr. Aguila - Pt is a 62 y/o female with diabetes mellitus, type 2, HTN, and hyperlipidemia who presented to the ED at [facility] [place] on 10/13/17 with reported intermittent dizziness and headache since August 2017. The patient states she went to bed last night feeling well but when she awakened this morning she was unable to speak and had weakness and numbness of the right side of the body. - The patient reports that she had expressive aphasia and the right sided weakness and paresthesia for approximately 10 minutes then her symptoms resolved. - Head CT in the ED which noted an old area of cortical infarct measuring approximately 1 cm involving the right cerebellar hemisphere but no acute intracranial abnormality identified. - Pts BP was significantly elevated in the ED at 205/91 and has remained elevated. - CT brain (10/13) - old area of cortical infarct, 1cm involving the right cerebellar hemisphere - MRI brain (10/13) - 1.5 x 1.3 cm area of acute cortical infarct in the right cerebellar hemisphere. - Punctate area of acute cortical infarct in the left a occipital cortex immediately posterior to the posterior horn of the left lateral ventricle. - Head CTA (10/13) - Focal high grade stenosis involving the right vertebral artery at the level of the foramen magnum. - The right vertebral artery is the main supply to the basilar system. The left vertebral artery terminates in a PICA distribution - Head MRA (10/13) - 1. Abnormal appearance of the vertebrobasilar circulation as above. 2. The anterior and middle cerebral circulation is widely patent - Neck CTA (10/13) - Patent carotid arteries and proximal vertebral arteries. 2. 3.5 cm right thyroid nodule - Carotid US (10/13) - : Minimal plaquing with less than 50%% diameter stenosis in the right internal carotid artery. - Telemetry: NSR - Echocardiogram done, interpretation pending - Pt currently wearing Holter monitor - Pt will require 21 day event monitor following hospitalization via [facility] Cardiology - HgA1C (10/13) 7.4 - LDL (10/14) 207 - Case d/w Dr. Aguila, Neurology. (10/14) - will start reigning in pt's blood pressure - continue lisinopril 20mg BID - start procardia XL 30mg daily and observe clinical response - IV vasotec prn - Pt needs statin. Pt has previous NOT been able to tolerate statin. Per pt, she has tried multiple different statins in the past - start crestor 5mg qhs. This dose will NOT be sufficient. If pt is able to tolerate, low dose crestor, increase to 10mg in 2 weeks and continue to titrate upwards - continue ASA 325mg - PT - anticipate discharge to home in 1-3 days - supportive care - DVT prophylaxis with SCDs - Case was discussed with pt (and by phone) all question were addressed. (10/14) (2) Cerebellar infarct ICD Codes: I63.9 - Cerebral infarction, unspecified Status: Acute Plan: - Pt with evidence of previous cerebellar CVA - This could be the cause of her previous dizziness since 08/2017 - See above. (3) HTN (hypertension) ICD Codes: I10 - Essential (primary) hypertension Status: Chronic Plan: - see above (4) Hyperlipidemia ICD Codes: E78.5 - Hyperlipidemia, unspecified Plan: - see above (5) Diabetes mellitus ICD Codes: E11.9 - Type 2 diabetes mellitus without complications Plan: - HgA1C 7.4 (10/13) - resume amaryl at 1mg BID - NovoLog SSI - Accu checks Problem Qualifiers (1) TIA (transient ischemic attack): Qualified Codes: G45.9 - Transient cerebral ischemic attack, unspecified (2) Diabetes mellitus: Qualified Codes: E11.8 - Type 2 diabetes mellitus with unspecified complications Jamey Suarez DO Oct 14, 2017 12:27
--- NOTE | 2017-10-14 14:15 | MB ---
cc: JT CRAWFORD M.D. DATE OF CONSULTATION 10/13/2017 REASON FOR CONSULTATION Stroke HISTORY OF PRESENT ILLNESS Ms. Porter is a 62-year-old female who woke up this morning and had inability to raise the right side or to talk. She had trouble lifting the arm up on the right and also the leg, was able to think of what she wanted to say, but could not get words out. This lasted about 15 minutes and then it resolved. She is left with dizziness and vertigo, but no double vision. PAST MEDICAL HISTORY History of: 1. Type 2 diabetes 2. Hypertension 3. Hyperlipidemia 4. A goiter 5. Fatty liver 6. Vitamin D deficiency 7. Hysterectomy 8. D&C 9. Breast nodule removal 10. Knee arthroscopy 11. Tonsillectomy 12. Wrist surgery 13. Skin cancer removal. MEDICATIONS 1. Ibuprofen and she states he occasionally takes Aspirin, but was not on it routinely recently. 2. She is on Amaryl. 3. Vasotec 4. Glyburide 5. Actos 6. Calcium ALLERGIES SULFA NEUROLOGIC EXAMINATION Blood pressure is 205/91, pulse is 90, respiratory rate is 18, temperature 97.9 degrees. Higher cortical functions are normal including speech. Cranial nerves are intact. The extraocular movements are normal. There is no nystagmus. The pupils are equal and reactive. Motor exam shows her to have 5/5 strength of all groups in both upper and lower extremities. There is no drift. Fine motor skills normal. Reflexes are symmetric. Cerebellar testing, she had an mild dysmetria right upper extremity. CT scan of the brain, old infarction right cerebellum. No acute change. MRI of the brain shows an acute infarction on diffusion images in the right cerebral hemisphere measuring 1.5 x 1.3 cm with no hemorrhage. There is a very tiny punctate area of acute cortical infarction left occipital cortex, as well. MR angiogram, carotid arteries are patent distally. VERÓNICA and MCA are normal. The left vertebral artery is small in size and terminates in a pica. The right vertebral is patent with high-grade stenosis at its juncture with the basilar artery. The basilar artery is patent throughout its course. Carotid ultrasound, minimal plaquing less than 50% stenosis in the right internal carotid artery. LABORATORY DATA The white count is 7800, hemoglobin 14, hematocrit 42% platelet count 236,000. Sodium is 138, potassium 3.8, chloride 104, CO2 27, the BUN is 8, creatinine 0.72, GFR is 82, glucose is 184, PT 10, INR 1. IMPRESSION The patient has evidence of posterior circulation stroke which is acute in the right cerebral hemisphere as well as the left occipital cortex. The episode of sudden onset of right-sided weakness with difficulty getting words out could have represented a left MCA event with aphasia, right hemiparesis. Alternatively, a brain stem event is a possibility as well. The etiology would include strokes in the vertebrobasilar system versus cardioembolic. RECOMMENDATIONS I would like to proceed with a CT angiogram to further evaluate the vertebrobasilar system including the brain and the neck. Also monitor cardiac telemetry to rule out A. fib and also check echocardiogram and lipid panel. Start the patient on aspirin therapy at the present time 325 mg as she states she was not on aspirin at this time of this event. Consider long-term anticoagulation. However, I would recommend not starting anticoagulation at the present time given the potential for converting the cerebellar stroke to a hemorrhagic stroke. Thank you asking us to see this nice patient in consult. MD JULISSA Christine/LEN /8:46 PM /6:48 AM
[2017-10-14] MEDS: ENALAPRILAT 1.25 MG/ML VIAL IV PUSH PRN (15:25)
--- NOTE | 2017-10-14 15:38 | EKG ---
Date Performed: 10/13/2017 Time Performed: 09:16:01 PTAGE: 62 years EKG: Sinus rhythm POSSIBLE ANTERIOR MYOCARDIAL INFARCTION Since previous tracing, no significant change noted ABNORMAL ECG PREVIOUS TRACING : 04/18/2009 10.58 DOCTOR: Sarah Mercedes Interpretating Date/Time 10/14/2017 15:37:04
[2017-10-14] MEDS: NIFEdipine 30 MG SUSTAINED RELEASE TAB PO SCH (15:53)
--- NOTE | 2017-10-14 19:50 | ECHRPT ---
Indication: CVA/TIA CONCLUSIONS The left ventricular systolic function is low normal with an estimated ejection fraction in the rang e of 50- 55%. Mild concentric left ventricular hypertrophy. Normal left ventricular size. BP: 203 / 83 HR: 73 Rhythm: Sinus MEASUREMENTS (Male / Female) Normal Values Technical Quality:Fair 2D ECHO LV Diastolic Diameter PLAX 4.8 cm 4.2 - 5.9 / 3.9 - 5.3 cm LV Systolic Diameter PLAX 3.8 cm IVS Diastolic Thickness 1.1 cm 0.6 - 1.0 / 0.6 - 0.9 cm LVPW Diastolic Thickness 1.1 cm 0.6 - 1.0 / 0.6 - 0.9 cm LV Relative Wall Thickness 0.4 LVOT Diameter 2.4 cm M-MODE Aortic Root Diameter MM 3.1 cm LA Systolic Diameter MM 3.8 cm LA Ao Ratio MM 1.2 AV Cusp Separation MM 2.5 cm DOPPLER AV Peak Velocity 141.0 cm/s AV Peak Gradient 8.0 mmHg LVOT Peak Velocity 87.4 cm/s LVOT Peak Gradient 3.1 mmHg AV Area Cont Eq pk 2.8 cm Mitral E Point Velocity 91.8 cm/s Mitral A Point Velocity 110.0 cm/s Mitral E to A Ratio 0.8 LV E' Lateral Velocity 6.3 cm/s Mitral E to LV E' Lateral Ratio 14.5 LV E' Septal Velocity 5.9 cm/s Mitral E to LV E' Septal Ratio 15.7 PV Peak Velocity 144.0 cm/s PV Peak Gradient 8.3 mmHg FINDINGS LEFT VENTRICLE The left ventricular systolic function is low normal with an estimated ejection fraction in the rang e of 50- 55%. Mild concentric left ventricular hypertrophy. Normal left ventricular size. RIGHT VENTRICLE Normal right ventricular size and systolic function. LEFT ATRIUM The left atrial size is normal. RIGHT ATRIUM The right atrial size is normal. ATRIAL SEPTUM Normal atrial septal thickness without atrial level shunting by limited color doppler interrogation. AORTA The aortic root and proximal ascending aorta are normal in size on limited imaging. MITRAL VALVE Structurally normal mitral valve. No mitral valve stenosis or regurgitation. AORTIC VALVE Trileaflet aortic valve. No aortic valve stenosis or regurgitation. TRICUSPID VALVE Structurally normal tricuspid valve. No tricuspid valve stenosis or regurgitation. PULMONARY VALVE The pulmonary valve is not well visualized. VESSELS The inferior vena cava is normal in size. PERICARDIUM No pericardial effusion. Sasha Johnston MD, FACC (Electronically Signed) Final Date:14 October 2017 19:49
[2017-10-15] VITALS (12 sets, daily range): BP systolic 149–179; BP diastolic 70–102; PULSE 77–99; RESP 18; TEMP 97.4–98.1; O2SAT 95–97
[2017-10-15] MEDS: ENALAPRILAT 1.25 MG/ML VIAL IV PUSH PRN (06:42)
[2017-10-15] MEDS: GLIMEPIRIDE 1 MG TAB PO SCH ×2 (06:45→15:49)
[2017-10-15] MEDS: NIFEdipine 30 MG SUSTAINED RELEASE TAB PO SCH (07:51)
[2017-10-15] MEDS: INSULIN ASPART SUPPLEMENTAL SCALE SQ SCH ×4 (07:51→21:00)
[2017-10-15] MEDS: ENALAPRIL MALEATE 10 MG TAB PO SCH ×2 (07:51→21:23)
[2017-10-15] MEDS: SODIUM CHLORIDE 0.9% FLUSH 10 ML FLUSH IV FLUSH SCH ×2 (07:51→21:24)
[2017-10-15] MEDS: ASPIRIN 325 MG TAB PO SCH (07:52)
--- NOTE | 2017-10-15 10:45 | HHI.PR ---
Subjective Remarks Patient reports, "I feel fine. I really am cj." Pt is moving all extremities without difficulties or c/o limb weakness. Pt is able to swallow without difficulties. Pt has no difficulties with speech or word recall. Objective Vitals Vital Signs Date Time Temp Pulse Resp B/P (MAP) Pulse Ox O2 Delivery O2 Flow Rate FiO2 10/15/17 08:00 97.5 88 18 176/81 (112) 96 10/15/17 06:05 98.1 88 18 179/79 (112) 95 10/15/17 01:05 98.0 87 18 149/70 (96) 95 10/14/17 20:56 97.4 97 18 178/68 (104) 97 10/14/17 18:00 144/80 (101) 10/14/17 15:00 97.4 80 18 206/95 (132) 97 10/14/17 12:10 214/86 (128) 10/14/17 11:02 98.0 83 18 206/96 (132) 95 Result Diagram: 10/14/17 0341 10/14/17 0341 Other Results Laboratory Tests Test 10/13/17 08:50 10/14/17 03:41 White Blood Count 7.8 TH/MM3 8.4 TH/MM3 Red Blood Count 5.19 MIL/MM3 4.95 MIL/MM3 Hemoglobin 14.0 GM/DL 13.1 GM/DL Hematocrit 42.0 % 40.3 % Mean Corpuscular Volume 80.9 FL 81.4 FL Mean Corpuscular Hemoglobin 27.0 PG 26.4 PG Mean Corpuscular Hemoglobin Concent 33.3 % 32.4 % Red Cell Distribution Width 14.6 % 14.7 % Platelet Count 236 TH/MM3 225 TH/MM3 Mean Platelet Volume 9.1 FL 8.6 FL Neutrophils (%) (Auto) 70.1 % 59.8 % Lymphocytes (%) (Auto) 23.4 % 31.2 % Monocytes (%) (Auto) 4.9 % 7.1 % Eosinophils (%) (Auto) 1.1 % 1.3 % Basophils (%) (Auto) 0.5 % 0.6 % Neutrophils # (Auto) 5.5 TH/MM3 5.0 TH/MM3 Lymphocytes # (Auto) 1.8 TH/MM3 2.6 TH/MM3 Monocytes # (Auto) 0.4 TH/MM3 0.6 TH/MM3 Eosinophils # (Auto) 0.1 TH/MM3 0.1 TH/MM3 Basophils # (Auto) 0.0 TH/MM3 0.1 TH/MM3 CBC Comment DIFF FINAL DIFF FINAL Differential Comment Prothrombin Time 10.0 SEC Prothromb Time International Ratio 1.0 RATIO Blood Urea Nitrogen 8 MG/DL 12 MG/DL Creatinine 0.72 MG/DL 0.70 MG/DL Random Glucose 184 MG/DL 151 MG/DL Calcium Level 8.6 MG/DL 8.5 MG/DL Sodium Level 138 MEQ/L 139 MEQ/L Potassium Level 3.8 MEQ/L 3.9 MEQ/L Chloride Level 104 MEQ/L 105 MEQ/L Carbon Dioxide Level 27.0 MEQ/L 26.2 MEQ/L Anion Gap 7 MEQ/L 8 MEQ/L Estimat Glomerular Filtration Rate 82 ML/MIN 85 ML/MIN Hemoglobin A1c 7.4 % Total Creatine Kinase 43 U/L Troponin I LESS THAN 0.02 NG/ML Triglycerides Level 180 MG/DL Cholesterol Level 292 MG/DL LDL Cholesterol 207 MG/DL HDL Cholesterol 49.0 MG/DL Cholesterol/HDL Ratio 5.95 RATIO Imaging Last Impressions Head CT 10/13/17910 Signed Impressions: Service Date/Time: Friday, October 13, 2017 09:41 - CONCLUSION: 1. Old area of cortical infarct measuring approximately 1 cm involving the right cerebellar hemisphere. 2. No acute intracranial abnormality identified. Jose Hancock MD Chest X-Ray 10/13/17910 Signed Impressions: Service Date/Time: Friday, October 13, 2017 09:28 - CONCLUSION: 1. No acute cardiopulmonary findings. Jose Hancock MD Neck CTA 10/13/17 Signed Impressions: Service Date/Time: Friday, October 13, 2017 21:21 - CONCLUSION: 1. Patent carotid arteries and proximal vertebral arteries. 2. 3.5 cm right thyroid nodule. Kael Pedroza Jr., MD Head Magnetic Resonance Angiography 10/13/17 Signed Impressions: Service Date/Time: Friday, October 13, 2017 12:54 - CONCLUSION: 1. Abnormal appearance of the vertebrobasilar circulation as above. 2. The anterior and middle cerebral circulation is widely patent Jose Hancock MD Head CTA 10/13/17 Signed Impressions: Service Date/Time: Friday, October 13, 2017 21:21 - CONCLUSION: 1. Focal high grade stenosis involving the right vertebral artery at the level of the foramen magnum. The right vertebral artery is the main supply to the basilar system. The left vertebral artery terminates in a PICA distribution. Kael Pedroza Jr., MD Carotid Artery Ultrasound 10/13/17 0000 Signed Impressions: Service Date/Time: Friday, October 13, 2017 10:21 - CONCLUSION: Minimal plaquing with less than 50%% diameter stenosis in the right internal carotid artery. Bill Shepard MD Brain MRI 10/13/17 0000 Signed Impressions: Service Date/Time: Friday, October 13, 2017 12:54 - CONCLUSION: 1. 1.5 x 1.3 cm area of acute cortical infarct in the right cerebellar hemisphere. 2. Punctate area of acute cortical infarct in the left a occipital cortex immediately posterior to the posterior horn of the left lateral ventricle. Jose Hancock MD Objective Remarks GENERAL: This is a well-nourished, well-developed patient, in no apparent distress. CARDIOVASCULAR: Regular rate and rhythm without murmurs, gallops, or rubs. RESPIRATORY: Clear to auscultation. Breath sounds equal bilaterally. No wheezes , rales, or rhonchi. GASTROINTESTINAL: Abdomen soft, non-tender, nondistended. Normal active bowel sounds MUSCULOSKELETAL: Extremities without clubbing, cyanosis, or edema. NEURO: Alert & Oriented x4 to person, place, time, situation. Moves all ext x4 Procedures none A/P Problem List: (1) TIA (transient ischemic attack) ICD Codes: G45.9 - Transient cerebral ischemic attack, unspecified Status: Acute Plan: - comgmt with Neurology, Dr. Aguila - Pt is a 62 y/o female with diabetes mellitus, type 2, HTN, and hyperlipidemia who presented to the ED at [facility] [place] on 10/13/17 with reported intermittent dizziness and headache since August 2017. The patient states she went to bed last night feeling well but when she awakened this morning she was unable to speak and had weakness and numbness of the right side of the body. - The patient reports that she had expressive aphasia and the right sided weakness and paresthesia for approximately 10 minutes then her symptoms resolved. - Head CT in the ED which noted an old area of cortical infarct measuring approximately 1 cm involving the right cerebellar hemisphere but no acute intracranial abnormality identified. - Pts BP was significantly elevated in the ED at 205/91 and has remained elevated. - CT brain (10/13) - old area of cortical infarct, 1cm involving the right cerebellar hemisphere - MRI brain (10/13) - 1.5 x 1.3 cm area of acute cortical infarct in the right cerebellar hemisphere. - Punctate area of acute cortical infarct in the left a occipital cortex immediately posterior to the posterior horn of the left lateral ventricle. - Head CTA (10/13) - Focal high grade stenosis involving the right vertebral artery at the level of the foramen magnum. - The right vertebral artery is the main supply to the basilar system. The left vertebral artery terminates in a PICA distribution - Head MRA (10/13) - 1. Abnormal appearance of the vertebrobasilar circulation as above. 2. The anterior and middle cerebral circulation is widely patent - Neck CTA (10/13) - Patent carotid arteries and proximal vertebral arteries. 2. 3.5 cm right thyroid nodule - Carotid US (10/13) - : Minimal plaquing with less than 50%% diameter stenosis in the right internal carotid artery. - Telemetry: NSR - Echocardiogram The left ventricular systolic function is low normal with an estimated ejection fraction in the range of 50-55%. Mild concentric left ventricular hypertrophy. Normal left ventricular size. - Holter monitor - Pt will require 21 day event monitor following hospitalization via [facility] Cardiology after DC - HgA1C (10/13) 7.4 - LDL (10/14) 207 - Case d/w Dr. Aguila, Neurology. (10/14) - will start reigning in pt's blood pressure - continue lisinopril 20mg BID - start procardia XL 30mg daily started 10/14, 10/15 BP still high will give additional procardia XL 30 mg now and increase to 60 mg daily tomorrow - IV vasotec prn - Pt needs statin. Pt has previous NOT been able to tolerate statin. Per pt, she has tried multiple different statins in the past - [place] does not carry Crestor will start crestor 5mg qhs at DC. This dose will NOT be sufficient. If pt is able to tolerate, low dose crestor, increase to 10mg in 2 weeks and continue to titrate upwards - continue ASA 325mg - PT - anticipate discharge to home in 1-2 days - supportive care - DVT prophylaxis with SCDs - Case was discussed with pt (and by phone) all question were addressed. (10/14) (2) Cerebellar infarct ICD Codes: I63.9 - Cerebral infarction, unspecified Status: Acute Plan: - Pt with evidence of previous cerebellar CVA - This could be the cause of her previous dizziness since 08/2017 - See above. (3) HTN (hypertension) ICD Codes: I10 - Essential (primary) hypertension Status: Chronic Plan: - see above (4) Hyperlipidemia ICD Codes: E78.5 - Hyperlipidemia, unspecified Plan: - see above (5) Diabetes mellitus ICD Codes: E11.9 - Type 2 diabetes mellitus without complications Plan: - HgA1C 7.4 (10/13) - resume amaryl at 1mg BID - NovoLog SSI - Accu checks Assessment and Plan Patient examined. Assessment and plan formulated with Margie Ward PA-C. I agree with the above. Problem Qualifiers (1) TIA (transient ischemic attack): Qualified Codes: G45.9 - Transient cerebral ischemic attack, unspecified (2) Diabetes mellitus: Qualified Codes: E11.8 - Type 2 diabetes mellitus with unspecified complications Margie Ward Oct 15, 2017 10:45 Jamey Suarez DO Oct 15, 2017 12:05
[2017-10-15] MEDS ORDERED: NIFEdipine 30 MG SUSTAINED RELEASE TAB PO ONE (11:15)
[2017-10-15] MEDS ORDERED: NIFEdipine 60 MG SUSTAINED RELEASE TAB PO ONE (22:30)
[2017-10-15] MEDS ORDERED: ALPRAZolam 0.25 MG TAB PO PRN (23:00)
[2017-10-16] VITALS (8 sets, daily range): BP systolic 119–159; BP diastolic 64–86; PULSE 74–100; RESP 16–18; TEMP 97.4–98.3; O2SAT 95–96
[2017-10-16] MEDS: INSULIN ASPART SUPPLEMENTAL SCALE SQ SCH ×4 (08:00→21:00)
[2017-10-16] MEDS ORDERED: DIATRIZOATE MEGLUM/DIATRIZOATE SOD 9 ML CUP PO ONE (08:00)
[2017-10-16 08:09] LABS: FREE T4 1.21 NG/DL (0.76-1.46)
[2017-10-16] MEDS ORDERED: ROSU5 PO (08:27)
--- NOTE | 2017-10-16 08:33 | HHI.DS ---
Discharge Summary Admission Date Oct 13, 2017 at 10:10 Discharge Date: Oct 17, 2017 Admitting Diagnosis TIA, cerebellar infarct (1) Cerebellar infarct Diagnosis: Principal ICD Codes: I63.9 - Cerebral infarction, unspecified Status: Acute (2) HTN (hypertension) Diagnosis: Principal ICD Codes: I10 - Essential (primary) hypertension Status: Chronic (3) Hyperlipidemia Diagnosis: Principal ICD Codes: E78.5 - Hyperlipidemia, unspecified (4) Diabetes mellitus Diagnosis: Secondary ICD Codes: E11.9 - Type 2 diabetes mellitus without complications Consultants Dr. Aguila Procedures none Brief History Mrs. Porter is a 62 y/o female with diabetes mellitus, type 2, HTN, and hyperlipidemia who presented to the ED at [facility] [place] on 10/13/17 with reported intermittent dizziness and headache since August 2017. The patient states she went to bed last night feeling well but when she awakened this morning she was unable to speak and had weakness and numbness of the right side of the body. The patient reports that she had expressive aphasia and the right sided weakness and paresthesia for approximately 10 minutes then her symptoms resolved. She denies any previous known hx of CVA or TIA. She denies any previous similar symptoms. She had a Head CT in the ED which noted an old area of cortical infarct measuring approximately 1 cm involving the right cerebellar hemisphere but no acute intracranial abnormality identified. Pts BP was significantly elevated in the ED at 205/91 and has remained elevated. Pt has been able to ambulate in the ED. She still feels slightly dizzy. CBC/BMP: 10/14/17 0341 10/14/17 0341 Significant Findings Laboratory Tests Test 10/13/17 08:50 10/14/17 03:41 10/16/17 06:35 Neutrophils (%) (Auto) 70.1 % (16.0-70.0) Random Glucose 184 MG/DL (74-106) 151 MG/DL (74-106) Estimat Glomerular Filtration Rate 82 ML/MIN (>89) 85 ML/MIN (>89) Hemoglobin A1c 7.4 % (4.3-6.0) Troponin I LESS THAN 0.02 NG/ML Mean Corpuscular Hemoglobin 26.4 PG (27.0-34.0) Triglycerides Level 180 MG/DL (42-150) Cholesterol Level 292 MG/DL (120-200) LDL Cholesterol 207 MG/DL (0-99) Imaging Last Impressions Head CT 10/13/17910 Signed Impressions: Service Date/Time: Friday, October 13, 2017 09:41 - CONCLUSION: 1. Old area of cortical infarct measuring approximately 1 cm involving the right cerebellar hemisphere. 2. No acute intracranial abnormality identified. Jose Hancock MD Chest X-Ray 10/13/17910 Signed Impressions: Service Date/Time: Friday, October 13, 2017 09:28 - CONCLUSION: 1. No acute cardiopulmonary findings. Jose Hancock MD Neck CTA 10/13/17 0000 Signed Impressions: Service Date/Time: Friday, October 13, 2017 21:21 - CONCLUSION: 1. Patent carotid arteries and proximal vertebral arteries. 2. 3.5 cm right thyroid nodule. Kael Pedroza Jr., MD Head Magnetic Resonance Angiography 10/13/17 0000 Signed Impressions: Service Date/Time: Friday, October 13, 2017 12:54 - CONCLUSION: 1. Abnormal appearance of the vertebrobasilar circulation as above. 2. The anterior and middle cerebral circulation is widely patent Jose Hancock MD Head CTA 10/13/17 0000 Signed Impressions: Service Date/Time: Friday, October 13, 2017 21:21 - CONCLUSION: 1. Focal high grade stenosis involving the right vertebral artery at the level of the foramen magnum. The right vertebral artery is the main supply to the basilar system. The left vertebral artery terminates in a PICA distribution. Kael Pedroza Jr., MD Carotid Artery Ultrasound 10/13/17 0000 Signed Impressions: Service Date/Time: Friday, October 13, 2017 10:21 - CONCLUSION: Minimal plaquing with less than 50%% diameter stenosis in the right internal carotid artery. Bill Shepard MD Brain MRI 10/13/17 0000 Signed Impressions: Service Date/Time: Friday, October 13, 2017 12:54 - CONCLUSION: 1. 1.5 x 1.3 cm area of acute cortical infarct in the right cerebellar hemisphere. 2. Punctate area of acute cortical infarct in the left a occipital cortex immediately posterior to the posterior horn of the left lateral ventricle. Jose Hancock MD PE at Discharge GENERAL: This is a well-nourished, well-developed patient, in no apparent distress. CARDIOVASCULAR: Regular rate and rhythm without murmurs, gallops, or rubs. RESPIRATORY: Clear to auscultation. Breath sounds equal bilaterally. No wheezes , rales, or rhonchi. GASTROINTESTINAL: Abdomen soft, non-tender, nondistended. Normal active bowel sounds MUSCULOSKELETAL: Extremities without clubbing, cyanosis, or edema. NEURO: Alert & Oriented x4 to person, place, time, situation. Moves all ext x4 Hospital Course TIA (transient ischemic attack) - comgmt with Neurology, Dr. Aguila - Pt is a 62 y/o female with diabetes mellitus, type 2, HTN, and hyperlipidemia who presented to the ED at [facility] [place] on 10/13/17 with reported intermittent dizziness and headache since August 2017. The patient states she went to bed last night feeling well but when she awakened this morning she was unable to speak and had weakness and numbness of the right side of the body. - The patient reports that she had expressive aphasia and the right sided weakness and paresthesia for approximately 10 minutes then her symptoms resolved. - Head CT in the ED which noted an old area of cortical infarct measuring approximately 1 cm involving the right cerebellar hemisphere but no acute intracranial abnormality identified. - Pts BP was significantly elevated in the ED at 205/91 and has remained elevated. - CT brain (10/13) - old area of cortical infarct, 1cm involving the right cerebellar hemisphere - MRI brain (10/13) - 1.5 x 1.3 cm area of acute cortical infarct in the right cerebellar hemisphere. - Punctate area of acute cortical infarct in the left a occipital cortex immediately posterior to the posterior horn of the left lateral ventricle. - Head CTA (10/13) - Focal high grade stenosis involving the right vertebral artery at the level of the foramen magnum. - The right vertebral artery is the main supply to the basilar system. The left vertebral artery terminates in a PICA distribution - Head MRA (10/13) - 1. Abnormal appearance of the vertebrobasilar circulation as above. 2. The anterior and middle cerebral circulation is widely patent - Neck CTA (10/13) - Patent carotid arteries and proximal vertebral arteries. 2. 3.5 cm right thyroid nodule - Carotid US (10/13) - : Minimal plaquing with less than 50%% diameter stenosis in the right internal carotid artery. - Telemetry: NSR - Echocardiogram The left ventricular systolic function is low normal with an estimated ejection fraction in the range of 50-55%. Mild concentric left ventricular hypertrophy. Normal left ventricular size. - Holter monitor - Pt will require 21 day event monitor following hospitalization via [facility] Cardiology after DC - HgA1C (10/13) 7.4 - LDL (10/14) 207 - Case d/w Dr. Aguila, Neurology. (10/14) - will start reigning in pt's blood pressure - continue lisinopril 20mg BID - start procardia XL 30mg daily started 10/14, 10/15 BP still high will give additional procardia XL 30 mg now and increase to 60 mg daily. Patient then became hypotensive Nifedipine DC'd - patient to keep BP log at home - IV vasotec prn while in the hospital - 24 hour urine completed but results not available, patient to follow up with PCP for results - Pt needs statin. Pt has previous NOT been able to tolerate statin. Per pt, she has tried multiple different statins in the past - [place] does not carry Crestor will start crestor 5mg qhs at DC. This dose will NOT be sufficient. If pt is able to tolerate, low dose crestor, increase to 10mg in 2 weeks and continue to titrate upwards - continue ASA 325mg - PT - anticipate discharge to home in 1-2 days - supportive care - DVT prophylaxis with SCDs - Case was discussed with pt (and by phone) all question were addressed. (10/14) Cerebellar infarct - Pt with evidence of previous cerebellar CVA - This could be the cause of her previous dizziness since 08/2017 - See above. HTN (hypertension) - see above Hyperlipidemia - see above Diabetes mellitus - HgA1C 7.4 (10/13) - resume amaryl at 1mg BID - NovoLog SSI - Accu checks Pt Condition on Discharge: Stable Discharge Disposition: Discharge Home Discharge Instructions DIET: Follow Instructions for: Heart Healthy Diet, Diabetic Diet Activities you can perform: Regular-No Restrictions Follow up Referrals: Cardiology - 3-[address] Cruz Neurology - 1 Week with Derrick Aguila MD PhD PCP Follow-up - [address] Wright New Medications: Rosuvastatin (Crestor) 5 Mg Tab 5 MG PO HS for Cholesterol Management, #30 TAB 0 Refills Aspirin (Px Aspirin) 325 Mg Tab 325 MG PO DAILY for Blood Clot Prevention, #30 TAB 0 Refills Continued Medications: Albiglutide 4-Pack Inj (Tanzeum 4-Pack Inj) 50 Mg Pfpen 50 MG SQ Q7D, #4 PEN Enalapril (Enalapril) 20 Mg Tab 20 MG PO BID for Blood Pressure Management, #30 TAB 0 Refills Glimepiride (Amaryl) 2 Mg Tab 2 MG PO BIDAC for Blood Sugar Management, #60 TAB 0 Refills Ibuprofen (Ibuprofen) 400 Mg Tab 400 MG PO Q4H PRN for PAIN SCALE 1 TO 5, TAB 0 Refills [Coq10] () 400 MG PO DAILY Discontinued Medications: Aspirin (Aspirin) 81 Mg Chew 81 MG CHEW DAILY, TAB 0 Refills Additional Information Patient examined. Assessment and plan formulated with Margie Ward PA-C. I agree with the above. Margie Ward Oct 16, 2017 08:33 Jamey Suarez DO Oct 21, 2017 22:32
[2017-10-16] MEDS ORDERED: NIFEdipine 60 MG SUSTAINED RELEASE TAB PO SCH ×2 (09:00)
[2017-10-16] MEDS: ENALAPRIL MALEATE 10 MG TAB PO SCH ×2 (09:00→21:46)
[2017-10-16] MEDS: GLIMEPIRIDE 1 MG TAB PO SCH ×2 (09:54→17:07)
[2017-10-16] MEDS: ASPIRIN 325 MG TAB PO SCH (09:54)
[2017-10-16] MEDS ORDERED: IOHEXOL 350 MG/ML 10 ML VIAL (for RAD DIAG) IVCONTRAST ONE (11:35)
--- NOTE | 2017-10-16 13:54 | RADRPT ---
EXAM DATE/TIME: 10/16/2017 11:00 [place] COMPARISON: No previous studies available for comparison. INDICATIONS : Uncontrollable hypertension. IV CONTRAST: 98 cc Omnipaque 350 (iohexol) IV RADIATION DOSE: 10.07 CTDIvol (mGy) MEDICAL HISTORY : Cerebrovascular disease. Hypertension. diabetes SURGICAL HISTORY : Hysterectomy. ENCOUNTER: Initial ACUITY: 1 day PAIN SCALE: 0/10 LOCATION: Abdomen TECHNIQUE: Volumetric scanning was performed using a multi-row detector CT scanner. The data was post processed with a variety of visualization algorithms including full volume maximum intensity projection, multi -planar sliding thin slab reformation, curved planar reformation, and surface rendering techniques. Using automated exposure control and adjustment of the mA and/or kV according to patient size, radiat ion dose was kept as low as reasonably achievable to obtain optimal diagnostic quality images. DICOM format image data is available electronically for review and comparison. FINDINGS: There is moderate atherosclerotic irregularity and dense intimal calcification involving the abdomina l aorta and iliacs. No significant stenotic narrowing appreciated. Looking at the aortic and visceral vessels, the celiac, SMA and renal arteries are widely patent. The SADA is patent. CONCLUSION: No evidence of renal artery stenosis. Levi Pedro MD on October 16, 2017 at 13:38 Board Certified Radiologist. This report was verified electronically.
--- NOTE | 2017-10-16 16:14 | HHI.PR ---
Subjective Remarks Pt has NO new complaints. Objective Vitals Vital Signs Date Time Temp Pulse Resp B/P (MAP) Pulse Ox O2 Delivery O2 Flow Rate FiO2 10/16/17 12:00 97.4 81 16 119/73 (88) 96 10/16/17 08:00 97.8 85 16 121/64 (83) 95 10/16/17 01:00 97.4 74 18 159/70 (99) 96 10/16/17 00:06 77 10/15/17 22:50 162/72 (102) 10/15/17 21:00 97.4 99 18 179/102 (127) 96 10/15/17 20:37 95 21 10/15/17 20:00 83 10/15/17 17:52 77 Result Diagram: 10/14/17 03410/14/17 034 Imaging Last Impressions Abdomen CTA 10/16/17 0800 Signed Impressions: Service Date/Time: September 11:00 - CONCLUSION: No evidence of renal artery stenosis. Levi Pedro MD Head CT 10/13/1711 Signed Impressions: Service Date/Time: Friday, October 13, 2017 09:41 - CONCLUSION: 1. Old area of cortical infarct measuring approximately 1 cm involving the right cerebellar hemisphere. 2. No acute intracranial abnormality identified. Jose Hancock MD Chest X-Ray 10/13/17910 Signed Impressions: Service Date/Time: Friday, October 13, 2017 09:28 - CONCLUSION: 1. No acute cardiopulmonary findings. Jose Hancock MD Neck CTA 10/13/17 0000 Signed Impressions: Service Date/Time: Friday, October 13, 2017 21:21 - CONCLUSION: 1. Patent carotid arteries and proximal vertebral arteries. 2. 3.5 cm right thyroid nodule. Kael Pedroza Jr., MD Head Magnetic Resonance Angiography 10/13/17 0000 Signed Impressions: Service Date/Time: Friday, October 13, 2017 12:54 - CONCLUSION: 1. Abnormal appearance of the vertebrobasilar circulation as above. 2. The anterior and middle cerebral circulation is widely patent oJse Hancock MD Head CTA 10/13/17 0000 Signed Impressions: Service Date/Time: Friday, October 13, 2017 21:21 - CONCLUSION: 1. Focal high grade stenosis involving the right vertebral artery at the level of the foramen magnum. The right vertebral artery is the main supply to the basilar system. The left vertebral artery terminates in a PICA distribution. Kael Pedroza Jr., MD Carotid Artery Ultrasound 10/13/17 0000 Signed Impressions: Service Date/Time: Friday, October 13, 2017 10:21 - CONCLUSION: Minimal plaquing with less than 50%% diameter stenosis in the right internal carotid artery. Bill Shepard MD Brain MRI 10/13/17 0000 Signed Impressions: Service Date/Time: Friday, October 13, 2017 12:54 - CONCLUSION: 1. 1.5 x 1.3 cm area of acute cortical infarct in the right cerebellar hemisphere. 2. Punctate area of acute cortical infarct in the left a occipital cortex immediately posterior to the posterior horn of the left lateral ventricle. Jose Hancock MD Objective Remarks GENERAL: This is a well-nourished, well-developed patient, in no apparent distress. CARDIOVASCULAR: Regular rate and rhythm without murmurs, gallops, or rubs. RESPIRATORY: Clear to auscultation. Breath sounds equal bilaterally. No wheezes , rales, or rhonchi. GASTROINTESTINAL: Abdomen soft, non-tender, nondistended. Normal active bowel sounds MUSCULOSKELETAL: Extremities without clubbing, cyanosis, or edema. NEURO: Alert & Oriented x4 to person, place, time, situation. Moves all ext x4 Procedures none A/P Problem List: (1) TIA (transient ischemic attack) ICD Codes: G45.9 - Transient cerebral ischemic attack, unspecified Status: Acute Plan: - comgmt with Neurology, Dr. Aguila - Pt is a 62 y/o female with diabetes mellitus, type 2, HTN, and hyperlipidemia who presented to the ED at [facility] on 10/13/17 with reported intermittent dizziness and headache since August 2017. The patient states she went to bed last night feeling well but when she awakened this morning she was unable to speak and had weakness and numbness of the right side of the body. - The patient reports that she had expressive aphasia and the right sided weakness and paresthesia for approximately 10 minutes then her symptoms resolved. - Head CT in the ED which noted an old area of cortical infarct measuring approximately 1 cm involving the right cerebellar hemisphere but no acute intracranial abnormality identified. - Pts BP was significantly elevated in the ED at 205/91 and has remained elevated. - CT brain (10/13) - old area of cortical infarct, 1cm involving the right cerebellar hemisphere - MRI brain (10/13) - 1.5 x 1.3 cm area of acute cortical infarct in the right cerebellar hemisphere. - Punctate area of acute cortical infarct in the left a occipital cortex immediately posterior to the posterior horn of the left lateral ventricle. - Head CTA (10/13) - Focal high grade stenosis involving the right vertebral artery at the level of the foramen magnum. - The right vertebral artery is the main supply to the basilar system. The left vertebral artery terminates in a PICA distribution - Head MRA (10/13) - 1. Abnormal appearance of the vertebrobasilar circulation as above. 2. The anterior and middle cerebral circulation is widely patent - Neck CTA (10/13) - Patent carotid arteries and proximal vertebral arteries. 2. 3.5 cm right thyroid nodule - Carotid US (10/13) - : Minimal plaquing with less than 50%% diameter stenosis in the right internal carotid artery. - MRA Abdomen/Pelvis (10/16) - no evidence of ALFREDO - Telemetry: NSR - Echocardiogram The left ventricular systolic function is low normal with an estimated ejection fraction in the range of 50-55%. Mild concentric left ventricular hypertrophy. Normal left ventricular size. - Holter monitor - Pt will require 21 day event monitor following hospitalization via [facility] Cardiology after DC - HgA1C (10/13) 7.4 - LDL (10/14) 207 - Case d/w Dr. Aguila, Neurology. (10/14) - will start reigning in pt's blood pressure - continue lisinopril 20mg BID - Pt received few doses of procardia - blood pressure readings improved. Procardia NOT continued - - IV vasotec prn - pt started on lipitor 10mg qPM - continue ASA 325mg - PT - supportive care - DVT prophylaxis with SCDs - Case was discussed with pt (and by phone) all question were addressed. (10/14) - 24 hour urine for metanephrin and norepinephrine - anticipate d/c to home 10/17 (2) Cerebellar infarct ICD Codes: I63.9 - Cerebral infarction, unspecified Status: Acute Plan: - Pt with evidence of previous cerebellar CVA - This could be the cause of her previous dizziness since 08/2017 - See above. (3) HTN (hypertension) ICD Codes: I10 - Essential (primary) hypertension Status: Chronic Plan: - see above (4) Hyperlipidemia ICD Codes: E78.5 - Hyperlipidemia, unspecified Plan: - see above (5) Diabetes mellitus ICD Codes: E11.9 - Type 2 diabetes mellitus without complications Plan: - HgA1C 7.4 (10/13) - resume amaryl at 1mg BID - NovoLog SSI - Accu checks Problem Qualifiers (1) TIA (transient ischemic attack): Qualified Codes: G45.9 - Transient cerebral ischemic attack, unspecified (2) Diabetes mellitus: Qualified Codes: E11.8 - Type 2 diabetes mellitus with unspecified complications Jamey Suarez DO Oct 16, 2017 16:14
--- NOTE | 2017-10-16 18:31 | HHI.PR ---
Review/Management Diagnosis cva--right cerebellum and left occipital --possibly cardioembolic Plan continue aspirin 325 mg daily. and Statin for elevated LDL Ok from neurology standpoint to discharge tomorrow on asa and statin to follow up with me in office next week. At that time will consider anticoagulation due to possibility of cardio-embolic stroke. If safety sitter normal will consider outpatient cardiology eval for loop recorder to be sure is no afib Diagnosis/Plan: Subjective Subjective Comments No acute events reported walked in [place] without difficulty Denies any new neurologic Sx. Active Medications Current Medications Medications (Trade) Dose Ordered Sig/Del Route Start Time Stop Time Status Last Admin (Tylenol) 650 mg Q4H PRN PO 10/13/17 10:15 10/14/17 21:44 (Zofran Inj) 4 mg Q6H PRN IVP 10/13/17 10:15 (Narcan Inj) 0.4 mg UNSCH PRN IV PUSH 10/13/17 10:15 (Milk Of Magnesia Liq) 30 ml Q12H PRN PO 10/13/17 10:15 (Vasotec Inj) 1.25 mg Q4H PRN IV PUSH 10/13/17 10:15 10/15/17 06:42 (Vasotec) 20 mg BID PO 10/13/17 11:00 10/15/17 21:23 (NS Flush) 2 ml BID IV FLUSH 10/13/17 21:00 10/15/17 21:24 (NS Flush) 2 ml UNSCH PRN IV FLUSH 10/13/17 21:15 10/15/17 06:43 (Aspirin) 325 mg DAILY PO 10/14/17 09:00 10/16/17 09:54 (NovoLOG SUPPLEMENTAL SCALE) 1 ACHS SQ 10/13/17 21:00 (D50w (Vial) Inj) 50 ml UNSCH PRN IV PUSH 10/13/17 21:15 (Glucagon Inj) 1 mg UNSCH PRN OTHER 10/13/17 21:15 (Amaryl) 1 mg BIDAC PO 10/14/17 09:45 10/16/17 17:07 (Xanax) 0.25 mg Q8H PRN PO 10/15/17 23:00 10/15/17 23:00 Allergies Allergies Coded Allergies Sulfa (Sulfonamide Antibiotics) (Unverified Allergy, Severe, mouth peels, 10/13) Uncoded Allergies PINE TREES ( Allergy, Severe, STOPS BREATHING, 04/18/09) ARTIFICIAL SWEETNERS ( Adverse Reaction, Severe, CAUSE NAUSEA, EXCEPT FOR SACATRIN, 04/18/09) Exam I&O / VS Vital Signs Date Time Temp Pulse Resp B/P (MAP) Pulse Ox O2 Delivery O2 Flow Rate FiO2 10/16/17 12:00 97.4 81 16 119/73 (88) 96 10/16/17 08:00 97.8 85 16 121/64 (83) 95 10/16/17 01:00 97.4 74 18 159/70 (99) 96 10/16/17 00:06 77 10/15/17 22:50 162/72 (102) 10/15/17 21:00 97.4 99 18 179/102 (127) 96 10/15/17 20:37 95 21 10/15/17 20:00 83 Exam Comments alert, speech normal CN 2-12 normal Motor--5/5 BUE and BLE Cerebellar--no dysmetria Objective Micro and Labs Laboratory Tests Test 10/16/17 06:35 Free Thyroxine 1.21 Thyroid Stimulating Hormone 3rd Gen 1.110 Derrick Aguila MD PhD Oct 16, 2017 18:31
[2017-10-16] MEDS: SODIUM CHLORIDE 0.9% FLUSH 10 ML FLUSH IV FLUSH SCH (21:47)
--- NOTE | 2017-10-16 23:42 | HM ---
Date Performed: 10/14/2017 Time Performed: 12:34:00 HOOKUP DATE: 10/14/17 12:34:00 PM Tue ANALYSIS START TIME: 10/14/2017 12:39:00 PM ANALYSIS END TIME: 10/15/2017 12:43:00 PM PATIENT AGE: 62 PATIENT HEIGHT PATIENT WEIGHT DRUG LIST PATIENT DIAGNOSIS: TIA TEST NARRATIVE: The patient's average heart rate was 86 BPM. Heart rates greater than 120 B PM were noted 2% of the time. No episodes of bradycardia were noted. No pauses exceeding 2.0 sec onds were noted. 12 ventricular ectopics, which represented < 1% of the total beat count, were no ashley. The highest ventricular ectopic frequency occurred from 07:00 PM to 08:00 PM Tue. During this time 2 VE(s) occurred. Ventricular ectopics were observed as 12 isolated beat(s) only. No couplets or runs were noted. No supraventricular ectopics were noted. No episodes of ST depression (de fined as -1.0 mm or more) were noted in channel 1. No episodes of ST depression (defined as -1.0 mm or more) were noted in channel 2. No episodes of ST depression (defined as -1.0 mm or more) were not ed in channel 3. no symptoms per patient TEST INTERPRETATION: 1. Predominant underlying rhythm is Sinus rhythm 2. No pauses greater than 2 sec 3. No significant tachy or sally arrythmias noted 4. NO cardiac symp toms noted during recorded time interval 5. NO episodes of AFIB noted Signed by : Farhan Mckeon
[2017-10-17] VITALS: BP 124/81; PULSE 77; PULSE 84; RESP 18; TEMP 97; O2SAT 95
[2017-10-17 04:00] VITALS: PULSE 77
[2017-10-17 04:48] VITALS: BP 148/86; PULSE 62; RESP 20; TEMP 98.1; O2SAT 97
[2017-10-17] MEDS: GLIMEPIRIDE 1 MG TAB PO SCH (06:19)
[2017-10-17 08:00] VITALS: BP 118/80; PULSE 86; RESP 18; TEMP 97.5; O2SAT 97
[2017-10-17] MEDS ORDERED: ASA325 PO (08:20)
[2017-10-17] MEDS ORDERED: ATORVASTATIN 10 MG TAB PO SCH (09:00)
[2017-10-17] MEDS: ASPIRIN 325 MG TAB PO SCH (09:23)
[2017-10-20 12:14] LABS: URINE EPINEPHRINE 3.3 mcg/24 h (<21)
[2017-10-21 17:58] LABS: METANEPHRINE 24 82 mcg/24 h; METANEPHRINE 24 COLLECTION DUR 24 h; NORMETANEPHRINE 24 414 mcg/24 h; TOTAL METANEPHRINE 496 mcg/24 h; URINE TOTAL VOLUME 1550 mL
== END 2017-10-17 12:37 | disposition home or self-care (01) | DRG 65 ==
LOC: NEPC 08:18 → NEDA 10:10 → NEDH 20:19 → N05B 10-14 13:05
PROVIDERS: ADMIT Hospitalist; ATTEND Hospitalist
DX: I63.9 Cerebral infarction, unspecified (principal); G81.91 Hemiplegia, unspecified affecting right dominant side; K76.0 Fatty (change of) liver, not elsewhere classified; I95.9 Hypotension, unspecified; I10 Essential (primary) hypertension; R47.01 Aphasia; E11.9 Type 2 diabetes mellitus without complications; E78.5 Hyperlipidemia, unspecified; E04.1 Nontoxic single thyroid nodule; E55.9 Vitamin D deficiency, unspecified; Z85.828 Personal history of other malignant neoplasm of skin; Z87.891 Personal history of nicotine dependence; Z86.73 Personal history of transient ischemic attack (TIA), and cerebral infarction without residual deficits
CPT/HCPCS: 70450; 70496; 70498; 70544; 70551; 71045; 74175; 80048; 80061; 82384; 82550; 82948; 83036; 83735; 83835; 84439; 84443; 84484; 85025; 85610; 93005; 93225; 93226; 93306; 93880; 99285; J7030; Q9967